=== PATIENT | male | born 1970 | race Caucasian/White ===

== ENCOUNTER → 2020-04-01 | Outpatient (CLI) | payer OTHER ==
[~2020-04-01] MED LIST: AZOR 5 MG-20 MG1 TAB PO
== END ==
LOC: COL.RAD 12:40
DX: M50.122 Cervical disc disorder at C5-C6 level with radiculopathy (principal); M48.02 Spinal stenosis, cervical region; M51.14 Intervertebral disc disorders with radiculopathy, thoracic region; M47.22 Other spondylosis with radiculopathy, cervical region

== ENCOUNTER → 2020-04-15 | Outpatient (CLI) | payer OTHER ==
[~2020-04-15] VITALS: Ht 185.4 cm; Wt 121.3 kg
[~2020-04-15] MED LIST changes: +LIPITOR20 MG PO
[2020-04-15 13:00] VITALS: BP 148/94; PULSE 80
[2020-04-15 13:54] VITALS: BP 154/99; PULSE 67
== END ==
LOC: COL.RAD 12:30
DX: M50.122 Cervical disc disorder at C5-C6 level with radiculopathy (principal)
CPT/HCPCS: J1100

== ENCOUNTER → 2020-08-19 | Outpatient (CLI) | payer OTHER | LOC: COL.RAD 12:06 | DX: M51.34 Other intervertebral disc degeneration, thoracic region (principal) ==